=== PATIENT | male | born 1995 | race Two or more races ===

== ENCOUNTER 2017-06-06 02:21 | Emergency (ER) | payer MEDICAID ==
[~2017-06-06] VITALS: Ht 177.8 cm; Wt 74.8 kg
[2017-06-06 02:25] VITALS: BP 134/71
[2017-06-06] MEDS ORDERED: GUAIFENESIN/CODEINE 10 ML UDC PO PRN (03:00)
[2017-06-06] MEDS ORDERED: AZITHROMYCIN 250 MG TABLET PO ONE (03:00)
[2017-06-06] MEDS ORDERED: GUAIFENESIN/CODEINE 10 ML UDC ONE (03:39)
== END 2017-06-06 03:55 | disposition home or self-care (01) ==
LOC: ER 02:26
DX: J02.8 Acute pharyngitis due to other specified organisms (principal); B97.89 Other viral agents as the cause of diseases classified elsewhere; R05 Cough
CPT/HCPCS: 71045-TC; A4606; Z7610

== ENCOUNTER 2018-07-10 21:57 | Emergency (ER) | payer OTHER ==
--- NOTE | 2018-07-10 22:22 | NUR ---
CALLED FOR PT. NO RESPONSE.
--- NOTE | 2018-07-10 22:54 | NUR ---
CALLED FOR PT. NO RESPONSE.
== END 2018-07-10 23:03 | disposition left against medical advice (07) ==
LOC: ER 22:00
DX: Z53.21 Procedure and treatment not carried out due to patient leaving prior to being seen by health care provider (principal)

== ENCOUNTER 2018-07-11 13:57 | Emergency (ER) | payer OTHER ==
[~2018-07-11] VITALS: Ht 177.8 cm; Wt 71.7 kg
[2018-07-11 13:57] VITALS: BP 120/70
[2018-07-11] MEDS ORDERED: IBUPROFEN 400 MG TABLET PO ONE (14:30)
[2018-07-11] MEDS ORDERED: CEPHALEXIN MONOHYDRATE 500 MG CAPSULE PO ONE ×2 (14:30→14:34)
[2018-07-11] MEDS ORDERED: SULFAMETH/TRIMETH 800/160 MG 1 UDTAB TABLET PO ONE ×2 (14:30→14:34)
[2018-07-11] MEDS ORDERED: IBUPROFEN 400 MG TABLET ONE (14:34)
== END 2018-07-11 15:22 | disposition home or self-care (01) ==
LOC: ER 14:00
DX: S50.361A Insect bite (nonvenomous) of right elbow, initial encounter (principal); L03.115 Cellulitis of right lower limb; Z60.2 Problems related to living alone; W57.XXXA Bitten or stung by nonvenomous insect and other nonvenomous arthropods, initial encounter; Y93.89 Activity, other specified; Y92.89 Other specified places as the place of occurrence of the external cause; Y99.8 Other external cause status
CPT/HCPCS: 73610-TC

== ENCOUNTER 2018-09-05 14:46 | Emergency (ER) ==
[~2018-09-05] VITALS: Ht 180.3 cm; Wt 84.4 kg
[2018-09-05 15:04] VITALS: BP 132/76
== END 2018-09-05 15:55 | disposition home or self-care (01) ==
LOC: ER 14:47
DX: T63.481A Toxic effect of venom of other arthropod, accidental (unintentional), initial encounter (principal); Z60.2 Problems related to living alone; Y92.89 Other specified places as the place of occurrence of the external cause

== ENCOUNTER 2018-09-18 11:13 | Emergency (ER) | payer OTHER ==
[~2018-09-18] VITALS: Ht 180.3 cm; Wt 79.4 kg
[2018-09-18 11:13] VITALS: BP 120/79
== END 2018-09-18 12:15 | disposition home or self-care (01) ==
LOC: ER 11:19
DX: J06.9 Acute upper respiratory infection, unspecified (principal); F10.10 Alcohol abuse, uncomplicated; Y90.9 Presence of alcohol in blood, level not specified

== ENCOUNTER 2018-11-25 01:40 | Emergency (ER) | payer OTHER ==
[~2018-11-25] VITALS: Ht 180.3 cm; Wt 73.5 kg
[2018-11-25 01:47] VITALS: BP 110/64
== END 2018-11-25 03:39 | disposition home or self-care (01) ==
LOC: ER 01:45
DX: L03.115 Cellulitis of right lower limb (principal)

== ENCOUNTER 2018-12-07 11:45 | Emergency (ER) | payer OTHER ==
[~2018-12-07] VITALS: Ht 180.3 cm; Wt 72.6 kg
[2018-12-07 11:54] VITALS: BP 126/77
--- NOTE | 2018-12-07 12:05 | NUR ---
SEEN AND EXAMINED BY .
--- NOTE | 2018-12-07 12:21 | NUR ---
Patient discharged to home in stable condition. Written and verbal after care instructions given. Patient verbalizes understanding of instruction.
== END 2018-12-07 12:22 | disposition home or self-care (01) ==
LOC: ER 11:45
DX: J02.9 Acute pharyngitis, unspecified (principal)

== ENCOUNTER 2019-01-10 10:55 | Emergency (ER) | payer OTHER ==
[~2019-01-10] VITALS: Ht 180.3 cm; Wt 72.6 kg
[2019-01-10 11:02] VITALS: BP 119/72
--- NOTE | 2019-01-10 11:35 | NUR ---
Dr Lopez aware of Visual Acuity Patient discharged to home in stable condition. Written and verbal after care instructions given. Patient verbalizes understanding of instruction.
== END 2019-01-10 11:35 | disposition home or self-care (01) ==
LOC: ER 10:55
DX: H11.31 Conjunctival hemorrhage, right eye (principal); F10.10 Alcohol abuse, uncomplicated; Y90.9 Presence of alcohol in blood, level not specified

== ENCOUNTER 2019-03-15 01:33 | Emergency (ER) | payer OTHER ==
[~2019-03-15] VITALS: Ht 180.3 cm; Wt 77.1 kg
--- NOTE | 2019-03-15 02:01 | NUR ---
PT AGREED TO V/S CHECK AFTER SPEAKING TO DR. MACKEY
[2019-03-15 02:02] VITALS: BP 141/85
--- NOTE | 2019-03-15 03:10 | NUR ---
Patient discharged to home in stable condition. Written and verbal after care instructions given. Patient verbalizes understanding of instruction. pt ambulatory with a steady gait.
== END 2019-03-15 03:10 | disposition home or self-care (01) ==
LOC: ER 01:34
DX: R05 Cough (principal)

== ENCOUNTER 2019-12-10 00:36 | Emergency (ER) | payer OTHER ==
[~2019-12-10] VITALS: Ht 180.3 cm; Wt 77.1 kg
[2019-12-10 00:47] VITALS: BP 117/75
== END 2019-12-10 01:00 | disposition home or self-care (01) ==
LOC: ER 00:38
DX: R05 Cough (principal)

== ENCOUNTER 2022-07-21 13:46 | Emergency (ER) | payer OTHER ==
[~2022-07-21] VITALS: Ht 177.8 cm; Wt 81.6 kg
--- NOTE | 2022-07-21 13:55 | NUR ---
[facility] CC SELLING RT ANKLE WITH ITCHINESS STARTED 1DAY PTC. PAIN ON WALKING 5/10. RT ANKLE IS WARM TO TOUCH , PUNCTA OR SKIN ABRAISION DUYE TO SCRATCHING WAS NOTED AT LAT malleolus rt AREA. NOT IN CR DISTRESS. AMBULATORY WITH STADY GAIT.. MADE AWARE
[2022-07-21 13:57] VITALS: BP 127/76
--- NOTE | 2022-07-21 14:09 | NUR ---
correction, swelling ok ankle rt
--- NOTE | 2022-07-21 14:44 | NUR ---
DR ACEVEDO AT BEDSIDE FOR EVAL . AWAITING FOR ORDERS
[2022-07-21] MEDS ORDERED: CEPH500C2 PO (14:50)
[2022-07-21] MEDS ORDERED: CETI-90 PO (14:50)
--- NOTE | 2022-07-21 15:16 | NUR ---
Patient discharged to home in stable condition. Written and verbal after care instructions given. Patient verbalizes understanding of instruction.
== END 2022-07-21 15:16 | disposition home or self-care (01) ==
LOC: ER 14:05
DX: S90.561A Insect bite (nonvenomous), right ankle, initial encounter (principal); W57.XXXA Bitten or stung by nonvenomous insect and other nonvenomous arthropods, initial encounter; Y93.89 Activity, other specified; Y92.89 Other specified places as the place of occurrence of the external cause; Y99.8 Other external cause status

== ENCOUNTER 2023-04-07 01:58 | Emergency (ER) | payer OTHER ==
[~2023-04-07] VITALS: Ht 180.3 cm; Wt 78.5 kg
[~2023-04-07 01:58] MED LIST: CEPH500C2 PO; CETI-90 PO
[2023-04-07 02:47] VITALS: BP 138/71; TEMP 98.7; O2SAT 98
== END 2023-04-07 03:02 | disposition home or self-care (01) ==
LOC: ER 02:01
DX: J06.9 Acute upper respiratory infection, unspecified (principal)

== ENCOUNTER 2024-09-16 00:08 | Emergency (ER) | payer OTHER ==
[~2024-09-16] VITALS: Ht 172.7 cm; Wt 83.9 kg
[2024-09-16 00:50] VITALS: BP 135/81; TEMP 98.2; O2SAT 98
== END 2024-09-16 01:51 | disposition left against medical advice (07) ==
LOC: ER 01:01
DX: R07.9 Chest pain, unspecified (principal); Z53.21 Procedure and treatment not carried out due to patient leaving prior to being seen by health care provider